=== PATIENT | female | born 1975 | race Caucasian/White ===

== ENCOUNTER 2025-01-03 13:51 | Emergency (ER) | payer OTHER ==
[~2025-01-03] VITALS: Ht 160 cm; Wt 50.3 kg
[2025-01-03 14:26] VITALS: PULSE 98; RESP 18; TEMP 98.2; O2SAT 100
[2025-01-03] MEDS ORDERED: MUPIROCIN22 GM TOP (14:45)
[2025-01-03] MEDS ORDERED: KEFLEX125 MG/5 M PO (14:45)
[2025-01-03] MEDS ORDERED: DOXYCYCLINE HY100 MG PO (14:45)
== END 2025-01-03 14:50 | disposition home or self-care (01) ==
LOC: ER 14:40
DX: L02.31 Cutaneous abscess of buttock (principal); Z85.41 Personal history of malignant neoplasm of cervix uteri; F17.210 Nicotine dependence, cigarettes, uncomplicated
CPT/HCPCS: 99282